=== PATIENT | female | born 1995 | race Caucasian/White ===

== ENCOUNTER 2020-05-06 23:27 | Inpatient (IN) ==
[2020-05-06] MEDS ORDERED: LACTATED RINGERS 500 ML IV PRN (23:38)
[2020-05-06] MEDS ORDERED: ONDANSETRON 4 MG/2 ML VIAL IV PRN (23:38)
[2020-05-06] MEDS ORDERED: LACTATED RINGERS 1,000 ML IV ONE (23:38)
[2020-05-06] MEDS ORDERED: LACTATED RINGERS 1,000 ML IV SCH (23:45)
[2020-05-07 00:14] LABS: Basophils % 0.2 % (0.0-0.8); Eosinophils # 0.1 10*3/uL (0.0-0.87); Eosinophils % 0.9 % (0.00-10.9); Hemoglobin 11.5 GM/DL (12.0-16.0); Immature Granulocytes % 0.4 %; Immature Granulocytes Absolute 0.05 #; Lymphocytes # 2.9 10*3/uL (1.4-4.0); Lymphocytes % 22.7 % (21.3-54.2); Mean Corpuscular HGB Conc 31.9 GM/DL (32-36); Mean Corpuscular Volume 90.9 FL (87-102); Mean Platelet Volume 10.6 FL (9.6-12.0); Monocytes % 8.7 % (1.7-12.7); Neutrophils % 67.1 % (38.7-73.9); Platelet Count 266 T/CUMM (130-400); Red Blood Count 3.96 MC/CUMM (3.8-5.5); Red Cell Distribution Width 12.5 % (9.3-17.3); White Blood Count 12.7 T/CUMM (4-12)
[2020-05-07 00:43] LABS: Albumin 2.8 G/DL (3.4-5.0); Bilirubin,Total 0.4 MG/DL (0.2-1.0); Calcium 9.1 MG/DL (8.5-10.1); Osmolality,Calculated 269.8 MOS/KG (273-304); Total Protein 7.3 G/DL (6.4-8.3)
[2020-05-07] MEDS ORDERED: diphenhydrAMINE 50 MG/1 ML VIAL IV PRN ×2 (10:39)
[2020-05-07] MEDS ORDERED: ONDANSETRON 4 MG/2 ML VIAL IV ONE (10:39)
[2020-05-07] MEDS ORDERED: hydrOXYzine HCL 25 MG/1 ML VIAL IM PRN (10:39)
[2020-05-07] MEDS ORDERED: CITRIC ACID/SODIUM CITRATE 30 ML UDCUP PO ONE (10:39)
[2020-05-07] MEDS ORDERED: PROMETHAZINE 25 MG/1 ML VIAL IM ONE (10:39)
[2020-05-07] MEDS ORDERED: NALOXONE 0.4 MG/ML VIAL IV PRN (10:39)
[2020-05-07] MEDS ORDERED: ePHEDrine 50 MG/ML VIAL IV PRN (10:39)
[2020-05-07] MEDS ORDERED: LACTATED RINGERS 1,000 ML IV ONE (10:39)
[2020-05-07] MEDS ORDERED: FAMOTIDINE 20 MG/2 ML VIAL IV ONE (10:39)
[2020-05-07] MEDS ORDERED: fentaNYL 2 MCG/ROPIV 0.2% EPID 100 ML EPIDURAL SCH (11:00)
[2020-05-07] MEDS: BUTORPHANOL 2 MG/ML VIAL IV PRN ×2 (11:07→14:54)
[2020-05-07] MEDS ORDERED: OXYTOCIN/LR 20 UNIT/1,000 ML BAG IV SCH (12:00)
[2020-05-07] MEDS ORDERED: TERBUTALINE 1 MG/1 ML VIAL SUBCUT ONE ×2 (14:30→18:47)
[2020-05-07] MEDS ORDERED: TERBUTALINE 1 MG/1 ML VIAL ONE (14:37)
[2020-05-07 18:24] LABS: Bilirubin,Urine Negative (Negative); Blood, Urine Negative (Negative); Glucose,Urine (UA) Negative (Negative); Hyaline Casts,Urine 5 /LPF (0-3); Ketones,Urine 20 mg/dL (Negative); Mucus,Urine Many /LPF (Occasional); Nitrite,Urine Negative (Negative); Protein,Urine Negative; RBC,Urine <1 /HPF (0-4); Squamous Epithelial Cell,Urine Occasional /HPF (0-10); Urine Appearance CLEAR (Clear); Urine Color Yellow (Yellow); Urine Specific Gravity 1.021 (1.001-1.035); Urine Urobilinogen < 2.0 EU/DL (0.2-1.0); WBC,Urine 4 /HPF (0-6)
[2020-05-07] MEDS ORDERED: miSOPROStoL 200 MCG TABLET ONE (19:46)
[2020-05-07] MEDS ORDERED: METHYLERGONOVINE 0.2 MG/1 ML AMP ONE (19:47)
[2020-05-07] MEDS ORDERED: CARBOPROST TROMETHAMINE 250 MCG/ML AMP IM ONE (19:47)
[2020-05-07] MEDS ORDERED: IBUPROFEN 800 MG TABLET PO PRN (20:09)
[2020-05-07] MEDS ORDERED: ONDANSETRON 4 MG/2 ML VIAL IV PRN (20:09)
[2020-05-07] MEDS ORDERED: BENZOCAINE 20%/MENTHOL 0.5% SPRAY 56 GM CAN TOP PRN (20:09)
[2020-05-07] MEDS ORDERED: MEASLES/MUMPS/RUBELLA VACCINE 0.5 ML VIAL SUBCUT ONE (20:09)
[2020-05-07] MEDS ORDERED: LANOLIN 50% CREAM 0.3 OZ TUBE TOP PRN (20:09)
[2020-05-07] MEDS ORDERED: oxyCODONE/ACETAMINOPHEN 5-325 MG TABLET PO PRN ×2 (20:09)
[2020-05-07] MEDS ORDERED: BISACODYL 10 MG SUPP RECTAL PRN (20:09)
[2020-05-07] MEDS ORDERED: RHO(D) IMMUNE GLOBULIN 300 MCG SYRINGE IM ONE (20:09)
[2020-05-07] MEDS ORDERED: ACETAMINOPHEN 325 MG TABLET PO PRN (20:09)
[2020-05-07] MEDS ORDERED: WITCH HAZEL PADS 100/JAR TOP PRN (20:09)
[2020-05-07] MEDS ORDERED: DIPH/TET/ACEL PERT BOOSTER VACCINE 0.5 ML VIAL IM ONE (20:09)
[2020-05-07] MEDS ORDERED: HYDROCORTISONE 2.5% RECTAL CREAM 30 GM TUBE TOP PRN (20:09)
[2020-05-07] MEDS ORDERED: OXYTOCIN/LR 20 UNIT/1,000 ML BAG IV ONE (20:09)
[2020-05-07 20:44] LABS: Cord Arterial Blood HCO3 14.1 MMOL/L
[2020-05-07 20:46] LABS: Cord Venous Blood PCO2 53.3 MMHG; Cord Venous Blood PO2 21.5
[2020-05-08] MEDS: DOCUSATE SODIUM 100 MG CAPSULE PO SCH ×4 (05:59→20:40)
[2020-05-08] MEDS: IBUPROFEN 400 MG TABLET PO PRN ×2 (06:36→19:16)
[2020-05-08 07:01] LABS: Basophils % 0.2 % (0.0-0.8); Eosinophils # 0.1 10*3/uL (0.0-0.87); Eosinophils % 0.6 % (0.00-10.9); Hematocrit 33.6 VOL% (35.7-47.0); Immature Granulocytes % 0.4 %; Immature Granulocytes Absolute 0.06 #; Lymphocytes # 2.3 10*3/uL (1.4-4.0); Lymphocytes % 16.3 % (21.3-54.2); Mean Corpuscular HGB Conc 32.7 GM/DL (32-36); Mean Corpuscular Volume 89.4 FL (87-102); Mean Platelet Volume 10.9 FL (9.6-12.0); Monocytes % 9.9 % (1.7-12.7); Neutrophils % 72.6 % (38.7-73.9); Platelet Count 198 T/CUMM (130-400); Red Blood Count 3.76 MC/CUMM (3.8-5.5); Red Cell Distribution Width 12.8 % (9.3-17.3); White Blood Count 14.1 T/CUMM (4-12)
[2020-05-09] MEDS: IBUPROFEN 400 MG TABLET PO PRN (04:30)
[2020-05-09] MEDS: DOCUSATE SODIUM 100 MG CAPSULE PO SCH (09:59)
[2020-05-09 11:24] VITALS: BP 134/74
== END 2020-05-09 11:40 | disposition home or self-care (01) | DRG 807 ==
LOC: N.LD 23:27 → N.OB 05-08 02:16
PROVIDERS: ADMIT Specialist; ATTEND Specialist